=== PATIENT | female | born 1990 | race American Indian/Alaskan Native ===

== ENCOUNTER 2021-03-24 20:20 | Emergency (ER) | payer OTHER ==
[2021-03-24 20:51] VITALS: BP 194/139
--- NOTE | 2021-03-24 21:07 | Event Note ---
ED Screening Note Date of service: 03/24/21 Time: 21:05 ED Screening Note: 30-year-old female patient with history of hypothyroidism presents to the emergency department with complaints of progressively worsening anterior neck pain and swelling for 2 weeks. Patient has a history of hypothyroidism and was off of her medication for approximately 1 year. She restarted levothyroxine approximately 1 month ago. No known sick contacts. COVID-19 rapid test obtained this week was negative. Tachycardic, febrile, hypertensive in triage. General: Awake, appropriately interactive. Tearful, anxious. ENT: Normal pharyngeal exam. Neck: Tenderness to palpation throughout the anterior neck with diffuse soft tissue swelling and painful goiter. Cardiovascular: Normal peripheral perfusion. Pulmonary: No respiratory distress. Patient is speaking normally without use of accessory muscles. Skin: No apparent rashes or lesions. Neurological: No facial asymmetry. Speech is clear. Follows commands. Patient is alert and oriented. Musculoskeletal: Moves all four extremities spontaneously with normal range of motion. Psych: Cooperative. Appropriate mood and affect. Ordered labs and CT of the neck with IV contrast. Requested campus monitor and peripheral IV access. I have greeted and performed a focused rapid initial assessment of this patient. A comprehensive ED assessment and evaluation of the patient, analysis of all test results, and completion of the medical decision-making process will be conducted by additional ED providers. This initial assessment/diagnostic orders/clinical plan/treatment(s) is/are subject to change based on patients health status, clinical progression and re-assessment. Further treatment and workup at subsequent clinical provider's discretion. Patient/guardian urged not to elope from the ED as their condition may be serious if not clinically assessed and managed.
[2021-03-24 21:33] LABS: Basophils # (Auto) 0.1 K/mm3 (0.0-0.1); Basophils % (Auto) 0.8 % (0.0-1.8); Eosinophils % (Auto) 0.4 % (0.0-4.3); Hematocrit 31.8 % (30.3-42.9); Lymphocytes # (Auto) 1.9 K/mm3 (1.2-5.4); Mean Corpuscular HGB Conc 35 % (30-34); Mean Corpuscular Volume 90 fl (79-97); Monocytes # (Auto) 0.8 K/mm3 (0.0-0.8); Monocytes % (Auto) 7.1 % (0.0-7.3); Platelet Count 458 K/mm3 (140-440); Red Blood Count 3.54 M/mm3 (3.65-5.03); Red Cell Distribution Width 14.6 % (13.2-15.2)
[2021-03-24 21:46] LABS: Alanine Aminotransferase 23 units/L (7-56); Albumin 3.7 g/dL (3.9-5); BUN/Creatinine Ratio 11; Blood Urea Nitrogen 9 mg/dL (7-17); Calcium 8.9 mg/dL (8.4-10.2); Hemolysis Index 2
--- NOTE | 2021-03-24 21:52 | Emergency Department Report ---
ED General Adult HPI - General Chief complaint: Sore Throat Stated complaint: THYROID PAIN MIGRAINE PUI?: Yes Time Seen by Provider: 03/24/21 21:48 Source: patient Mode of arrival: Ambulatory Limitations: No Limitations - History of Present Illness Initial comments: Patient is a 30-year-old female that presents emergency room for sore throat and lymphadenopathy and difficulty swallowing. Patient states symptoms been going on for 2 weeks. Patient states that she has also increasing the size of her thyroid goiter. Patient states been increasing for about 4 weeks. Patient states she was diagnosed with a goiter in 2014 and hypothyroidism. Patient states she developed a fever approximately 2 days ago. Patient states she was tested yesterday for COVID-19 and it was negative. Patient states she has not vaccinated for COVID-19. Patient denies cough. Patient denies recent travel. Patient denies recent international travel. Patient denies exposure to the novel coronavirus. Patient denies sick contacts. Patient denies fever and chills. Patient denies cough. Patient denies diarrhea. Patient denies coming in contact with anybody with symptoms of the novel coronavirus. -: Sudden Severity scale (0 -10): 10 - Related Data Previous Rx's Medication Instructions Recorded Last Taken Type Azithromycin [Zithromax Tri-Catalino] 500 mg PO DAILY 3 Days #3 tablet 03/25/21 Unknown Rx methylPREDNISolone [Medrol 4MG 4 mg PO DAILY 6 Days #1 tab.ds.pk 03/25/21 Unknown Rx DOSEPAK (21 tabs)] Allergies Allergy/AdvReac Type Severity Reaction Status Date / Time No Known Allergies Allergy Unverified 03/24/21 23:03 ED Review of Systems ROS: Stated complaint: THYROID PAIN MIGRAINE Other details as noted in HPI Constitutional: chills, fever Eyes: as per HPI. denies: eye pain, eye discharge, vision change ENT: as per HPI, throat pain. denies: ear pain Respiratory: denies: cough, shortness of breath, wheezing Cardiovascular: denies: chest pain, palpitations Endocrine: no symptoms reported Gastrointestinal: denies: abdominal pain, nausea, diarrhea Genitourinary: denies: urgency, dysuria, discharge Musculoskeletal: denies: back pain, joint swelling, arthralgia Skin: denies: rash, lesions Neurological: denies: headache, weakness, paresthesias Psychiatric: denies: anxiety, depression Hematological/Lymphatic: denies: easy bleeding, easy bruising ED Past Medical Hx - Past Medical History Previous Medical History?: Yes Additional medical history: Hypothyroidism and goiter - Surgical History Past Surgical History?: No - Family History Family history: no significant - Social History Smoking Status: Current Every Day Smoker Substance Use Type: Alcohol, Marijuana - Medications Home Medications: Home Medications Medication Instructions Recorded Confirmed Last Taken Type Azithromycin [Zithromax Tri-Catalino] 500 mg PO DAILY 3 Days #3 tablet 03/25/21 Unknown Rx methylPREDNISolone [Medrol 4MG 4 mg PO DAILY 6 Days #1 tab.ds.pk 03/25/21 Unknown Rx DOSEPAK (21 tabs)] ED Physical Exam - General Limitations: No Limitations General appearance: alert, in no apparent distress - Head Head exam: Present: atraumatic, normocephalic - Eye Eye exam: Present: normal appearance - ENT ENT exam: Present: mucous membranes moist, other (Oropharynx red with exudate. Tonsillar enlargement noted.) - Neck Neck exam: Present: tenderness, full ROM, lymphadenopathy, thyromegaly. Absent: meningismus - Respiratory Respiratory exam: Present: normal lung sounds bilaterally. Absent: respiratory distress, wheezes, rales, rhonchi, stridor - Cardiovascular Cardiovascular Exam: Present: regular rate, normal rhythm. Absent: systolic murmur, diastolic murmur, rubs, gallop - GI/Abdominal GI/Abdominal exam: Present: soft, normal bowel sounds - Extremities Exam Extremities exam: Present: normal inspection - Back Exam Back exam: Present: normal inspection - Neurological Exam Neurological exam: Present: alert, oriented X3 - Psychiatric Psychiatric exam: Present: normal affect, normal mood - Skin Skin exam: Present: warm, dry, intact, normal color. Absent: rash ED Course Vital Signs 03/24/21 20:47 Temperature 100.0 F H Pulse Rate 103 H Respiratory 18 Rate Blood Pressure 194/139 O2 Sat by Pulse 100 Oximetry - Reevaluation(s) Reevaluation #1: Patient ambulated with a pulse ox and the patient's pulse ox remained stable. Patient started at 100% and the patient remained above 98% the entire time the patient was ambulating. 03/24/21 22:30 Reevaluation #2: Patient states the pain is better. I discussed all results and clinical findings with patient. I discussed plan of care with patient. Patient agrees with plan of care. Patient is stable for discharge. Patient will be discharged home. Patient given discharge instructio ns. Patient voiced understanding of discharge instructions. 03/25/21 00:27 ED Medical Decision Making - Lab Data Result diagrams: 03/24/21 21:10 03/24/21 21:10 - Radiology Data Radiology results: report reviewed, image reviewed interpreted by me: Chest x-ray: No pneumonia, no pneumothorax, no foreign body, no osseous findings, no acute findings CT NECK 03/24/2021 HISTORY: painful neck swelling - hx hypothyroidism. FINDINGS: Contrast enhanced CT images of the soft tissues of the neck were obtained. Images are evaluated in the axial, coronal, and sagittal plane. There is prominent diffuse enlargement of the thyroid gland. The overall cinder pit crane operator niocaudal length of the thyroid gland is 10 cm on the left and 9 cm on the right. There is no evidence of focal mass or lesion. There is no evidence of fluid collection. There is a normal CT appearance to the parotid and submandibular glands. Normal bilateral lymph nodes are noted. IMPRESSION: Prominent diffuse homogeneous thyroid enlargement. No evidence of focal thyroid or neck mass. CHEST PA AND LATERAL VIEWS INDICATION: fever. COMPARISON: None. FINDINGS: Support devices: None. Heart: Within normal limits. Lungs/Pleura: No acute pulmonary or pleural findings. Mild displacement of the upper trachea toward the right is likely due to goiter-please see CT neck report. IMPRESSION: 1. No acute findings. - Medical Decision Making Patient is a 30-year-old female who presents emergency room for throat pain and enlarging goiter. Patient had a goiter years. Patient's symptoms of throat pain and difficulty swallowing. Patient also planing of fever. Patient had labs done which were essentially unremarkable. Patient had a rapid strep that was negative. Patient had a rapid flu and it was negative. Patient had a Monospot test and it was negative. On exam, patient had large tonsils with exudate. Patient had a CT scan of the neck and it was negative for acute findings. Patient had a chest x-ray for the fever and was negative for acute findings. Patient is stable for discharge. Patient not require inpatient services. Patient not require further emergency medical service. Patient given steroids and Toradol and the patient responded well. Patient's pain decreased. Patient discharged home with antibiotics and a steroid pack. - Differential Diagnosis Tonsillitis, pharyngitis, URI, Covid, PUI, Critical care attestation.: If time is entered above; I have spent that time in minutes in the direct care of this critically ill patient, excluding procedure time. ED Disposition Clinical Impression: Goiter, Acute bacterial tonsillitis Fever Qualifiers: Fever type: unspecified Qualified Code(s): R50.9 - Fever, unspecified Pharyngitis Qualifiers: Pharyngitis/tonsillitis etiology: unspecified etiology Qualified Code(s): J02.9 - Acute pharyngitis, unspecified Disposition: 01 HOME / SELF CARE / HOMELESS Is pt being admited?: No Does the pt Need Aspirin: No Condition: Stable Instructions: Tonsillitis, [id number], Fever, Adult, Strep Throat, Adult, Pharyngitis, [id number] Additional Instructions: Patient to follow-up with primary care in 2 to 3 days. Patient to follow-up with digital music instructor in 2 to 3 days. Patient to rest. Patient to increase water. Patient to avoid strenuous exercise or heavy lifting until cleared by primary care. Patient to take Tylenol or ibuprofen as needed for pain. Patient to take meds as directed. Patient to return to the ER if condition worsens, changes or new symptoms arise. Patient to follow CDC guidelines for COVID-19. Patient vaccinated soon as possible. Patient to have outpatient testing for COVID-19. Patient to self quarantine for 14 days. Prescriptions: methylPREDNISolone [Medrol 4MG DOSEPAK (21 tabs)] 4 mg PO DAILY 6 Days #1 tab.ds.pk Azithromycin [Zithromax Tri-Catalnio] 500 mg PO DAILY 3 Days #3 tablet Referrals: CARLA CARTER MD [Staff Physician] - 2-3 Days Time of Disposition: 00:27
--- NOTE | 2021-03-24 22:39 | Cat Scan Report ---
CT NECK 03/24/2021 HISTORY: painful neck swelling - hx hypothyroidism. FINDINGS: Contrast enhanced CT images of the soft tissues of the neck were obtained. Images are evalu ated in the axial, coronal, and sagittal plane. There is prominent diffuse enlargement of the thyroid gland. The overall craniocaudal length of the t hyroid gland is 10 cm on the left and 9 cm on the right. There is no evidence of focal mass or lesion. There is no evidence of fluid collection. There is a normal CT appearance to the parotid and submandibular glands. Normal bilateral lymph nodes are noted. IMPRESSION: Prominent diffuse homogeneous thyroid enlargement. No evidence of focal thyroid or neck m ass. All CT scans at this location are performed using dose reduction to ALARA by means of automated expos ure control. Signer Name: Kumar Wray MD Signed: 03/24/2021 10:35 PM Workstation Name: [id number]
--- NOTE | 2021-03-24 22:43 | XRay Report ---
CHEST PA AND LATERAL VIEWS INDICATION: fever. COMPARISON: None. FINDINGS: Support devices: None. Heart: Within normal limits. Lungs/Pleura: No acute pulmonary or pleural findings. Mild displacement of the upper trachea toward the right is likely due to goiter-please see CT neck re port. IMPRESSION: 1. No acute findings. Signer Name: Rich Worthy MD Signed: 03/24/2021 10:38 PM Workstation Name: [id number]
[2021-03-24] MEDS ORDERED: KETOROLAC 30 MG/1 ML INJ IV ONE (23:11)
[2021-03-24] MEDS ORDERED: methylPREDNISolone Sod Succinate 125 MG/2 ML INJ IV ONE (23:15)
[2021-03-24] MEDS ORDERED: SODIUM CHLORIDE 0.9% 1000 ML 1,000 ML IV ONE (23:15)
== END 2021-03-25 08:55 | disposition home or self-care (01) ==
LOC: ED 20:20
DX: E04.9 Nontoxic goiter, unspecified (principal); J03.80 Acute tonsillitis due to other specified organisms; F17.200 Nicotine dependence, unspecified, uncomplicated; F12.90 Cannabis use, unspecified, uncomplicated; F10.20 Alcohol dependence, uncomplicated; R50.9 Fever, unspecified
CPT/HCPCS: 36415; 70491; 71046; 80053; 84436; 84443; 84481; 84703; 85025; 86308; 87116; 87400; 87430; 96361; 96374; 96375; 99284; J1885; J2930; J7030; Q9967